=== PATIENT | female | born 1980 | race African-American/Black ===

== ENCOUNTER 2018-01-11 03:19 | Emergency (ER) | payer OTHER | END 2018-01-11 05:07 | disposition home or self-care (01) | LOC: ERS 03:19 | DX: K02.9 Dental caries, unspecified (principal); E03.9 Hypothyroidism, unspecified; D50.0 Iron deficiency anemia secondary to blood loss (chronic); Z87.891 Personal history of nicotine dependence; Z79.899 Other long term (current) drug therapy | CPT/HCPCS: 99282 ==

== ENCOUNTER 2018-05-05 11:56 | Emergency (ER) | payer OTHER ==
[2018-05-05] MEDS ORDERED: HYDROcodone/Acetaminophen 10/325 mg Tablet ONE (13:12)
--- NOTE | 2018-05-05 13:54 | RAD ---
LEFT KNEE FOUR VIEWS: 05/05/18 HISTORY: 37-year-old female with history of left knee pain after a fall and associated injury. Arthrosis changes are noted involving all three compartments with narrowing of the medial and latera l compartments. Some increased density in the suprapatellar recess, evidence for some joint effusion. No evidence for acute fracture. IMPRESSION: Arthrosis and degenerative changes with some subchondral sclerosis and irregularity of both femoral c ondyles. Evidence for suprapatellar joint effusion. No acute fracture. POS: [facility]
== END 2018-05-05 13:15 | disposition home or self-care (01) ==
LOC: ERS 11:56
DX: S83.92XA Sprain of unspecified site of left knee, initial encounter (principal); M06.9 Rheumatoid arthritis, unspecified; E03.9 Hypothyroidism, unspecified; F17.210 Nicotine dependence, cigarettes, uncomplicated; D50.9 Iron deficiency anemia, unspecified; Z71.6 Tobacco abuse counseling; W01.0XXA Fall on same level from slipping, tripping and stumbling without subsequent striking against object, initial encounter; Z79.899 Other long term (current) drug therapy
CPT/HCPCS: 99406

== ENCOUNTER 2018-08-07 14:21 | Outpatient (CLI) | payer OTHER ==
--- NOTE | 2018-08-07 16:14 | ULT ---
PELVIC ULTRASOUND: 08/07/2018 HISTORY: Abnormal uterine bleeding. COMPARISON: None available. FINDINGS: Multiple transabdominal and endovaginal sonographic images of pelvis are obtained. The uterus and bi lateral ovaries are obscured on transabdominal imaging but are visualized on endovaginal imaging. Th e uterus demonstrates a normal sonographic appearance, measuring 6.7 cm x 5.9 cm x 5.4 cm. The endom etrial stripe measures 1.3 cm, which is at the upper limits of normal in a normal menstruating female patient. No fluid or fluid collection is seen in the endometrial canal. The ovaries demonstrate a normal sonographic appearance on endovaginal imaging, with the right ovary measures 2.5 cm x 1.3 cm x 2.3 cm and the left ovary measuring 3.4 cm x 1.7 cm x 2.2 cm. Doppler evaluation with spectral analysis and color-flow evaluation of each ovary is performed. Dori rial flow is difficult to elicit in each ovary, primarily related to positioning of the ovaries. Art erial flow is documented at the peripheral aspects of each ovary. A small amount of free fluid is seen adjacent to the uterine fundus. IMPRESSION: 1. Endometrial stripe thickness measures 1.3 cm. This is within normal limits in a normal menstruat ing female patient. No fluid or fluid collection is seen in the endometrial canal. 2. Normal appearing bilateral ovaries. 3. Small amount of free fluid adjacent to the uterus. POS: [facility]
--- NOTE | 2018-08-07 16:19 | RAD ---
LUMBAR SPINE RADIOGRAPHS TWO VIEWS: 08/07/2018 PROVIDED CLINICAL HISTORY: Low back pain. FINDINGS: Four [id number] lumbar-type vertebral bodies are present. Lumbar alignment appears normal. Nabil tebral body heights appear preserved. intervertebral disk space heights appear preserved. Pedicles appear intact. SI joints appear symmetric. IMPRESSION: Unremarkable lumbar spine radiographs. POS: [facility]
--- NOTE | 2018-08-07 16:21 | RAD ---
LEFT HIP RADIOGRAPHS TWO VIEWS: 08/07/2018 PROVIDED CLINICAL HISTORY: Left hip pain. FINDINGS: No evidence for fracture or other acute osseous abnormality. If there is persistent clinical concern, conservative management and follow-up imaging are advised. IMPRESSION: No evidence for an acute osseous abnormality or significant arthropathy. POS: [facility]
== END 2018-08-07 14:22 | disposition home or self-care (01) ==
LOC: BICULT 14:21
PROVIDERS: ATTEND Family Medicine
DX: M54.5 Low back pain (principal); N93.9 Abnormal uterine and vaginal bleeding, unspecified; M25.552 Pain in left hip
CPT/HCPCS: 72100; 76856